=== PATIENT | male | born 1980 | race Caucasian/White ===

== ENCOUNTER 2021-03-18 01:06 | Emergency (ER) | payer OTHER, MEDICAID ==
[~2021-03-18] VITALS: Ht 185.4 cm; Wt 152.4 kg
[~2021-03-18 01:06] MED LIST: LISI20TA28; LITH300T3; PROZAC
[2021-03-18] MEDS ORDERED: NEOMYCIN-BACITRACIN-POLYM UNITDOSE PKG TOP OINT TOP ONE (01:45)
[2021-03-18 05:28] VITALS: BP 141/90
== END 2021-03-18 05:35 | disposition home or self-care (01) ==
LOC: ER 01:08
DX: S61.412A Laceration without foreign body of left hand, initial encounter (principal); I10 Essential (primary) hypertension; F17.210 Nicotine dependence, cigarettes, uncomplicated; X58.XXXA Exposure to other specified factors, initial encounter; Y93.89 Activity, other specified; Y92.89 Other specified places as the place of occurrence of the external cause; Y99.8 Other external cause status
CPT/HCPCS: 12002